=== PATIENT | male | born 1955 | race Caucasian/White ===

== ENCOUNTER → 2019-12-17 | Outpatient (REF) | payer OTHER, SELFPAY | LOC: M LAB REF 10:12 | PROVIDERS: ATTEND Physician Assistant | DX: C44.41 Basal cell carcinoma of skin of scalp and neck (principal); C44.509 Unspecified malignant neoplasm of skin of other part of trunk ==

== ENCOUNTER → 2023-06-06 | Outpatient (REF) | payer MEDICARE, OTHER | LOC: M SFHCDERM 18:13 | PROVIDERS: ATTEND Physician Assistant | DX: C44.219 Basal cell carcinoma of skin of left ear and external auricular canal (principal) ==

== ENCOUNTER → 2024-02-27 | Outpatient (REF) | payer MEDICARE, OTHER | LOC: M SFHCDERM 17:13 | PROVIDERS: ATTEND Dermatology | DX: C44.619 Basal cell carcinoma of skin of left upper limb, including shoulder (principal) ==

== ENCOUNTER → 2024-03-04 | Outpatient (REF) | payer MEDICARE, OTHER | LOC: M SFHCDERM 17:10 | PROVIDERS: ATTEND Dermatology | DX: Z51.89 Encounter for other specified aftercare (principal) ==